=== PATIENT | male | born 1965 | race Caucasian/White ===

== ENCOUNTER 2018-06-22 11:36 | Outpatient (CLI) | payer BC | END 2018-06-22 11:37 | disposition home or self-care (01) | LOC: RAD 11:36 | DX: M79.671 Pain in right foot (principal) ==

== ENCOUNTER 2018-08-02 10:53 | Outpatient (CLI) | payer BC | END 2018-08-02 10:54 | disposition home or self-care (01) | LOC: RAD 10:53 ==